=== PATIENT | female | born 1955 | race Caucasian/White ===

== ENCOUNTER 2019-06-02 08:36 | Day surgery (SDC) | payer BC ==
[2019-06-02 09:31] LABS: Mean Platelet Volume 7.8; Platelet Count 526 k/uL (150-450)
[2019-06-02 09:36] LABS: INR 0.9 (<1.2)
[2019-06-02 09:37] LABS: Prothrombin Time 9.7 sec (9.0-12.0)
[2019-06-02 09:42] VITALS: TEMP 98
[2019-06-02] MEDS ORDERED: ALPRAZolam 0.5 MG TAB PO STA (09:44)
[2019-06-02] MEDS ORDERED: HYDROmorphone 0.5 MG/0.5 ML SYRINGE IVP STA (10:06)
--- NOTE | 2019-06-02 10:51 | CT ---
EXAMINATION TYPE: CT biopsy liver DATE OF EXAM: 06/02/2019 COMPARISON: NONE HISTORY: Abnormal LFTs CT DLP: 1124mGycm The procedure was explained to the patient. The risks, complications, benefits, and alternatives wer e discussed and any questions were answered. Informed consent was obtained. Patient was placed supi ne on the CT table and prepped and draped in the usual sterile fashion. All elements of maximal barrier and sterile technique utilized. Utilizing CT guidance, an 18 gauge core biopsy needle access into the posterior segment right lobe o f the liver was achieved and a single 18 gauge core sample was obtained. The patient was stable thro ughout the procedure and remained stable upon discharge. IMPRESSION: 1. Successful 18 gauge core biopsy of the liver.
[2019-06-02 15:26] VITALS: RESP 18
[2019-06-02 15:27] VITALS: BP 127/67; PULSE 69
== END 2019-06-02 14:03 | disposition home or self-care (01) ==
LOC: RADPROMAIN 08:36
PROVIDERS: ATTEND Internal Medicine Gastroenterology
DX: K83.1 Obstruction of bile duct (principal); K74.0 Hepatic fibrosis; R74.8 Abnormal levels of other serum enzymes
CPT/HCPCS: 85049; 85610; 88313; 88307; 96374; 36415; 47000; 77012; J1170